=== PATIENT | female | born 1965 | race Caucasian/White ===

== ENCOUNTER 2018-12-07 11:08 | Emergency (ER) | payer MEDICAID ==
[~2018-12-07] VITALS: Ht 170.2 cm; Wt 62.1 kg
[2018-12-07 11:08] VITALS: BP_SYST 145
[2018-12-07 12:19] LABS: BASOPHILS % (AUTO) 0.4 % (0.0-2.0); EOSINOPHILS # (AUTO) 0.1 K/uL (0.0-0.4); EOSINOPHILS % (AUTO) 2.4 % (0.0-4.0); HEMATOCRIT 44.1 % (36-48); HEMOGLOBIN 14.6 g/dL (12.0-16.0); LYMPHOCYTES # (AUTO) 1.4 K/uL (1.0-5.5); LYMPHOCYTES % (AUTO) 22.6 % (20.5-51.5); MEAN CORPUSCULAR HEMOGLOBIN 30 pg (27-31); MEAN CORPUSCULAR HGB CONC 33 % (32-36); MEAN CORPUSCULAR VOLUME 91 fL (79.0-98.0); MONOCYTES # (AUTO) 0.6 K/uL (0.0-1.0); MONOCYTES % (AUTO) 8.8 % (1.7-9.3); NEUTROPHILS # (AUTO) 4.1 K/uL (1.8-7.7); NEUTROPHILS % (AUTO) 65.8 % (40.0-70.0); PLATELET COUNT (AUTO) 208 K/uL (130-430); RED BLOOD CELL COUNT(AUTO) 4.85 MIL/uL (4.2-6.2); RED CELL DISTRIBUTION WIDTH 14.4 % (9.0-15.0); WHITE BLOOD COUNT (AUTO) 6.3 K/uL (4.8-10.8)
[2018-12-07 12:32] LABS: CALCIUM 9.2 mg/dL (8.4-11.0); CREATININE 1.04 mg/dL (0.55-1.30); POTASSIUM 3.9 mmol/L (3.5-5.1)
[2018-12-07 12:39] LABS: ALBUMIN 3.6 g/dL (3.4-4.8); TOTAL BILIRUBIN 0.4 mg/dL (0.0-1.0)
[2018-12-07 14:18] VITALS: BP_SYST 137
== END 2018-12-07 14:18 | disposition home or self-care (01) ==
LOC: SED 11:08
DX: D25.9 Leiomyoma of uterus, unspecified (principal); M46.1 Sacroiliitis, not elsewhere classified; Z88.0 Allergy status to penicillin
CPT/HCPCS: 36415; 76770; 76830-TC; 76857; 80053; 81002; 81025; 85025; 99284

== ENCOUNTER 2019-01-20 08:57 | Emergency (ER) | payer MEDICAID ==
[~2019-01-20] VITALS: Ht 162.6 cm; Wt 60.8 kg
[2019-01-20 09:17] VITALS: BP_SYST 148
[2019-01-20 10:59] VITALS: BP_SYST 148
== END 2019-01-20 10:59 | disposition home or self-care (01) ==
LOC: SED 08:57
DX: Q18.1 Preauricular sinus and cyst (principal)
CPT/HCPCS: 99283